=== PATIENT | female | born 1995 | race Caucasian/White ===

== ENCOUNTER 2019-03-06 03:23 | Emergency (ER) | payer OTHER ==
[~2019-03-06] VITALS: Ht 167.6 cm; Wt 95.0 kg
[2019-03-06] MEDS ORDERED: IBUPROFEN 600MG TABLET PO ONE (04:30)
[2019-03-06 06:04] VITALS: BP 136/86
== END 2019-03-06 06:05 | disposition home or self-care (01) ==
LOC: ER 03:23
DX: H60.92 Unspecified otitis externa, left ear (principal)
CPT/HCPCS: 99283